=== PATIENT | male | born 1990 | race African-American/Black ===

== ENCOUNTER 2024-12-10 13:43 | Emergency (ER) | payer SELFPAY ==
[~2024-12-10] VITALS: Ht 172.7 cm; Wt 95.0 kg
[2024-12-10 13:50] VITALS: BP 133/88; PULSE 92; RESP 18; TEMP 36.8; O2SAT 99
== END 2024-12-10 20:00 | disposition left against medical advice (07) ==
LOC: ER 13:43
DX: F10.129 Alcohol abuse with intoxication, unspecified (principal); Y90.9 Presence of alcohol in blood, level not specified
CPT/HCPCS: 99283